=== PATIENT | female | born 1950 | race Caucasian/White ===

== ENCOUNTER → 2016-10-10 | Outpatient (CLI) | payer OTHER ==
[~2016-10-10] MED LIST: ATOR1TAB21 PO; EC-N500T OR; IBUP200C PO; PERC5TAB6 PO; VITAMIN B COMPLEX WI OR
== END ==
LOC: M PAIN 11:20
PROVIDERS: ATTEND Nurse Practitioner Family
DX: Z53.29 Procedure and treatment not carried out because of patient's decision for other reasons (principal)

== ENCOUNTER → 2017-01-16 | Outpatient (CLI) | payer OTHER ==
[2017-01-16 08:53] LABS: MEAN CORPUSCULAR HEMOGLOBIN 27.1 pg (27.0-33.0); MEAN CORPUSCULAR HGB CONC 33.2 g/dl (32.0-36.5); MEAN CORPUSCULAR VOLUME 81.6 fl (80.0-96.0); WHITE BLOOD COUNT 12.8 K/mm3 (4.0-10.0)
[2017-01-16 09:22] LABS: ALBUMIN 3.4 GM/DL (3.2-5.2); ALBUMIN/GLOBULIN RATIO 0.92 (1.00-1.93); ALKALINE PHOSPHATASE 134 U/L (45-117); ALT/SGPT 15 U/L (12-78); ANION GAP 7 MEQ/L (8-16); AST/SGOT 11 U/L (15-37); BILIRUBIN,TOTAL 0.3 MG/DL (0.2-1.0); BLOOD UREA NITROGEN 12 MG/DL (7-18); CALCIUM LEVEL 8.7 MG/DL (8.8-10.2); CARBON DIOXIDE LEVEL 26 MEQ/L (21-32); CHLORIDE LEVEL 109 MEQ/L (98-107); CHOLESTEROL LEVEL 137 MG/DL (<200); CREATININE FOR GFR 0.71 MG/DL (0.55-1.02); GLOMERULAR FILTRATION RATE > 60.0 (>45); GLUCOSE, FASTING 99 MG/DL (80-110); POTASSIUM SERUM 4.2 MEQ/L (3.5-5.1); SODIUM LEVEL 142 MEQ/L (136-145); TOTAL PROTEIN 7.1 GM/DL (6.4-8.2); TRIGLYCERIDES LEVEL 74 MG/DL (<150)
== END ==
LOC: M LAB 07:56
PROVIDERS: ATTEND Physician Assistant
DX: F17.200 Nicotine dependence, unspecified, uncomplicated (principal); Z79.899 Other long term (current) drug therapy; M48.06 Spinal stenosis, lumbar region; C34.92 Malignant neoplasm of unspecified part of left bronchus or lung; E55.9 Vitamin D deficiency, unspecified; R60.9 Edema, unspecified; E78.2 Mixed hyperlipidemia; K21.9 Gastro-esophageal reflux disease without esophagitis

== ENCOUNTER → 2017-01-26 | Outpatient (CLI) | payer MEDICARE, OTHER ==
--- NOTE | 2017-01-26 16:59 | REP ---
Chest x-ray: Two views: History: Bronchitis. Cough and shortness of breath. Findings: The lungs are symmetrically aerated and clear. Pleural angles are sharp. Heart size is normal. The aorta is calcific. There are degenerative changes in the thoracic spine. There are old healed rib fractures on the left. Some vascular calcification is noted in the carotid artery distribution in the neck soft tissues. Impression: No active disease. Vascular calcification. Signed by Lowell Mckeon MD 01/26/2017 06:02 P
== END ==
LOC: M ADAMS 14:35
PROVIDERS: ATTEND Physician Assistant
DX: J40 Bronchitis, not specified as acute or chronic (principal); I70.0 Atherosclerosis of aorta

== ENCOUNTER 2017-04-02 08:19 | Emergency (ER) | payer OTHER ==
[~2017-04-02] VITALS: Ht 154.9 cm; Wt 86.4 kg
[~2017-04-02 08:19] MED LIST changes: -IBUP200C PO; +IBUP200C10 PO; +PERC5TAB12 PO; -PERC5TAB6 PO
[2017-04-02] MEDS ORDERED: FURO20TA2 PO (08:44)
[2017-04-02] MEDS ORDERED: ATOR1TAB21 PO (08:44)
[2017-04-02] MEDS ORDERED: OMEP40CA2 PO (08:44)
[2017-04-02] MEDS ORDERED: IBUP-1022 PO (08:44)
[2017-04-02] MEDS ORDERED: GABA-283 PO (08:44)
[2017-04-02] MEDS ORDERED: GABA600T PO (08:44)
[2017-04-02] MEDS ORDERED: methylPREDNISolone INJ 125 MG/2 ML VIAL (J2930) IV ONE (09:30)
[2017-04-02] MEDS ORDERED: NS 1,000 ML IV ONE ×2 (09:30→13:30)
[2017-04-02] MEDS ORDERED: IPRATROPIUM 0.5MG/ALBUTEROL 2.5MG INH SOL UD 3ML (DUONEB)(J7620) NEB ONE (09:30)
[2017-04-02] MEDS ORDERED: ALBUTEROL SULFATE 2.5 MG/0.5 ML INH NEB SOLN INH ONE (09:30)
[2017-04-02] MEDS ORDERED: ONDANSETRON 4MG/2ML VIAL (J2405) IV ONE (09:30)
[2017-04-02] MEDS: MORPHINE 2 MG/ML 1ML SYRINGE IV PRN ×2 (09:40→14:35)
--- NOTE | 2017-04-02 09:55 | REP ---
Chest one-view HISTORY: Cough Comparison: 05/28/2016 The lungs are clear. The heart is normal in size. The pulmonary vasculature is normal in appearance. Impression: No acute disease. Signed by Tank Abbott MD 04/02/2017 09:46 A
[2017-04-02 09:57] LABS: BASO # 0.1 K/mm3 (0.0-0.2); BASO % 0.8 % (0.0-1.0); EOS # 0.2 K/mm3 (0.0-0.50); EOS % 1.5 % (0.0-3.0); LARGE UNSTAINED CELL # 0.3 K/mm3 (0.0-0.4); LYMPH # 3.6 K/mm3 (1.5-4.5); MEAN CORPUSCULAR HEMOGLOBIN 26.7 pg (27.0-33.0); MEAN CORPUSCULAR HGB CONC 33.8 g/dl (32.0-36.5); MONO # 0.5 K/mm3 (0.0-0.8); MONO % 3.6 % (0.0-5.0); NEUTROPHILS # 8.5 K/mm3 (1.8-7.7); PLATELET COUNT, AUTOMATED 304 k/mm3 (150-450); RED CELL DISTRIBUTION WIDTH 15.5 % (11.5-14.5); WHITE BLOOD COUNT 12.8 K/mm3 (4.0-10.0)
[2017-04-02 10:01] LABS: INR 0.98
[2017-04-02 10:24] LABS: ALBUMIN 3.2 GM/DL (3.2-5.2); ALBUMIN/GLOBULIN RATIO 0.84 (1.00-1.93); ALKALINE PHOSPHATASE 135 U/L (45-117); ALT/SGPT 13 U/L (12-78); ANION GAP 7 MEQ/L (8-16); AST/SGOT 11 U/L (15-37); BILIRUBIN,DIRECT < 0.1 MG/DL (0.0-0.2); BILIRUBIN,TOTAL 0.3 MG/DL (0.2-1.0); BLOOD UREA NITROGEN 18 MG/DL (7-18); CALCIUM LEVEL 8.5 MG/DL (8.8-10.2); CARBON DIOXIDE LEVEL 23 MEQ/L (21-32); CHLORIDE LEVEL 114 MEQ/L (98-107); CREATININE FOR GFR 0.56 MG/DL (0.55-1.02); GLOMERULAR FILTRATION RATE > 60.0 (>45); GLUCOSE, FASTING 103 MG/DL (80-110); POTASSIUM SERUM 3.2 MEQ/L (3.5-5.1); SODIUM LEVEL 144 MEQ/L (136-145); THYROXINE (T4) 10.6 UG/DL (4.5-12.0)
[2017-04-02] MEDS ORDERED: POTASSIUM CHLORIDE 10 MEQ SR TABLET PO ONE (10:45)
--- NOTE | 2017-04-02 11:23 | ECGEPIP ---
Stationary ECG Study [facility] - ED Test Date: 2017-04-02 Pat Name: THIERNO ALEJANDRE Department: Room: - Gender: F Consulting Sales Manager: JOSH : 1950 Requested By: Minor Quick Order Number: [id number] Reading MD: Minor Quick Measurements Intervals Man Rate: 88 P: 58 AL: 148 QRS: 62 QRSD: 84 T: 89 QT: 332 QTc: 402 Interpretive Statements SINUS RHYTHM NONSPECIFIC T-WAVE ABNORMALITY DELAYED R WAVE PROGRESSION CW 03/23/15 RATE INCREASED Electronically Signed On 04-02-2017 11:23:00 EDT by Minor Quick
--- NOTE | 2017-04-02 11:49 | REP ---
CT ABDOMEN AND PELVIS WITHOUT CONTRAST: HISTORY: Left flank pain. COMPARISON: 03/02/2009 The patient is status post cholecystectomy. Several ill-defined hypodensities are present in the liver. These may represent cysts or possibly metastases. A 2 cm mass is present in the left adrenal gland. This most likely represents and adenoma. The pancreas, spleen, right adrenal gland and kidneys are normal in appearance. There is no nephrolithiasis or hydroureter. Diverticula are present in the descending and sigmoid colon. The patient is status post hysterectomy. The urinary bladder is normal in appearance. There is no mass, adenopathy or free fluid. A 4 cm right lateral ventral abdominal hernia containing fat is present. Degenerative change is present in the thoracic and lumbar spine. The visualized lungs are clear. A small pericardial effusion is present. IMPRESSION: 1. The patient is status post cholecystectomy. 2. There are several ill-defined hypodensities in the liver that may represent cysts or possibly metastases. Contrast-enhanced or ultrasound may be helpful for further evaluation. 3. 2 cm left adrenal mass most likely representing an adenoma. 4. Descending and sigmoid colon diverticulosis. 5. The patient is status post hysterectomy. 6. 4 cm right lateral ventral abdominal hernia containing fat. 7. Small pericardial effusion. Signed by Tank Abbott MD 04/02/2017 11:51 A
[2017-04-02] MEDS ORDERED: MORPHINE 2 MG/ML 1ML SYRINGE IV PRN (13:00)
--- NOTE | 2017-04-02 15:01 | REP ---
MRI THORACIC SPINE WITHOUT CONTRAST: HISTORY: Foot numbness. A disc bulge is present at the T5-6 level. There is minimal effacement of the thecal sac without spinal cord compression. The T5 neural foramina are patent. A disc bulge is present at the T6-7 level. There is mild effacement of the thecal sac without spinal cord compression. The T6 neural foramina are patent. A disc bulge is present at the T7-8 level. There is mild effacement of the thecal sac without spinal cord compression. The T7 neural foramina are patent. A disc bulge is present at the T9-10 level. There is minimal effacement of the thecal sac without spinal cord compression. The T9 neural foramina are patent. A disc bulge is present at the T10-11 level. There is mild effacement of the thecal sac without spinal cord compression. There is hypertrophy of the posterior articulating facets. The T10 neural foramina are patent. A disc bulge and mild sized right paracentral disc extrusion are present at the T12-L1 level. There is hypertrophy of the ligamenta flava and posterior articulating facets. These findings produce moderate central canal stenosis and spinal cord compression. There is no other disc bulge or herniation. The remaining neural foramina are patent. The spinal cord is normal in signal intensity. A hemangioma is present in the T6 vertebral body. Increased signal intensity on T2-weighted images is present in the endplates of several mid and lower thoracic vertebral bodies. This represents degenerative change. There are old compression fractures of the T8 through T11 vertebral bodies with minimal height loss. IMPRESSION: 1. Disc bulges at the T5-6 through T7-8, T9-10 and T10-11 levels without spinal cord compression. 2. Moderate central canal stenosis at the T12-L1 level secondary to disc bulge, disc extrusion, ligamentous and facet hypertrophy. There is moderate spinal cord compression. Signed by Tank Abbott MD 04/02/2017 03:06 P
--- NOTE | 2017-04-02 15:25 | REP ---
MRI LUMBAR SPINE WITHOUT CONTRAST: HISTORY: Foot numbness. COMPARISON: 03/05/2014 Decreased signal intensity on T2-weighted images is present in the visualized thoracic and lumbar intervertebral discs. The discs are decreased in height. These findings are consistent with disc degeneration. A disc bulge and mild sized right paracentral disc extrusion are present at the T12-L1 level. This produces moderate spinal cord compression. The T12 neural foramina are patent on sagittal images. A diffuse disc bulge and small left paracentral disc protrusion are present at the L1-2 level. There is hypertrophy of the ligamenta flava and posterior articulating facets. There are 3 mm of retrolisthesis of L1 on L2. These findings produce moderate central canal stenosis. The L1 nerves exit the neural foramina without compression. A diffuse disc bulge is present at the L2-3 level. There is hypertrophy of the ligamenta flava and posterior articulating facets. These findings produce severe central canal stenosis. There is compression of the right L2 nerve in the neural foramen. The left L2 nerve exits the neural foramen without compression. A diffuse disc bulge is present at the L3-4 level. There is hypertrophy of the ligamenta flava and posterior articulating facets. These findings produce moderate central canal stenosis. A moderate size right intraforaminal disc protrusion is present. There is compression of the right L3 nerve in the neural foramen. The left L3 nerve exits the neural foramen without compression. A diffuse disc bulge and small right paracentral disc protrusion are present at the L4-5 level. There is hypertrophy of the ligamenta flava and posterior articulating facets. There is 7 mm of grade 1 spondylolisthesis of L4 on L5. These findings produce moderate central canal stenosis. There is compression of the L4 nerves in the neural foramina. A diffuse disc bulge and mild sized central disc extrusion are present at the L5-S1 level. There is inferior migration of disc material. The disc extrusion is decreased in size. There is minimal compression of the thecal sac. There is hypertrophy of the posterior articulating facets. There is compression of the L5 nerves in the neural foramina. The conus medullaris terminates at the level of the T12-L1 intervertebral disc. A hemangioma is present in the L4 vertebral body. Normal signal intensity is present in the remaining lumbar vertebral bodies. IMPRESSION: 1. Moderate central canal stenosis at the L1-2 level secondary to disc bulge, disc protrusion, ligamentous and facet hypertrophy. There has been progression of the canal stenosis. 2. Severe central canal stenosis at the L2-3 level secondary to disc bulge, ligamentous and facet hypertrophy. 3. Moderate central canal stenosis at the L3-4 level secondary to disc bulge, ligamentous and facet hypertrophy. A moderate sized right intraforaminal disc protrusion is present. There is compression of the right L3 nerve in the neural foramen. There has been progression of the canal stenosis. 4. Moderate central canal stenosis at the L4-5 level secondary to disc bulge, disc protrusion, ligamentous and facet hypertrophy and grade 1 spondylolisthesis. 5. Diffuse disc bulge and mild sized central disc extrusion at the L5-S1 level with minimal thecal sac compression. The disc extrusion is decreased in size. There is no other significant change. Signed by Tank Abbott MD 04/02/2017 03:31 P
[2017-04-02] MEDS ORDERED: AVEL1TAB3 PO (15:34)
[2017-04-02] MEDS ORDERED: PRED20TA PO (15:34)
[2017-04-02 15:37] VITALS: BP 180/76
== END 2017-04-02 15:50 | disposition home or self-care (01) ==
LOC: M ED 08:19
DX: J20.9 Acute bronchitis, unspecified (principal); J44.1 Chronic obstructive pulmonary disease with (acute) exacerbation; M51.37 Other intervertebral disc degeneration, lumbosacral region; M51.34 Other intervertebral disc degeneration, thoracic region; M48.00 Spinal stenosis, site unspecified; C34.92 Malignant neoplasm of unspecified part of left bronchus or lung; F17.210 Nicotine dependence, cigarettes, uncomplicated; Z98.61 Coronary angioplasty status; Z79.899 Other long term (current) drug therapy; E78.4 Other hyperlipidemia; R06.02 Shortness of breath
CPT/HCPCS: 51701; 71010; 72146; 72148; 74176; 80048; 80076; 81001; 82550; 82553; 83605; 83880; 84436; 84443; 84484; 85025; 85610; 87040; 87088; 87186; 93005; 93041; 94640; 94760; 96361; 96374; 96375; 99285; J2405; J2930

== ENCOUNTER → 2017-04-06 | Outpatient (CLI) | payer OTHER ==
[~2017-04-06] MED LIST changes: +AVEL1TAB3 PO; +FURO20TA2 PO; +GABA-283 PO; +GABA600T PO; +IBUP-1022 PO; +OMEP40CA2 PO; +PRED20TA PO
--- NOTE | 2017-04-06 09:05 | REP ---
Abdominal right upper quadrant ultrasound in a patient with lung carcinoma and question of hepatic metastases. Comparison is a CT study of the abdomen and pelvis dated 04/02 2017. The the patient has a cholecystectomy. There is no intrahepatic or extrahepatic biliary duct dilatation, the common duct measures 7.4 mm in diameter. This is in the normal range for a post cholecystectomy patient. There is a 3.8 cm mass in the right lobe of the liver corresponds to a hypodensity on the comparison CT. There is a 3.9 cm hypodense lesion in the left lobe of the liver. This corresponds to a hypodensity on the comparison CT. The hepatic parenchyma is otherwise homogeneous and unremarkable. The visualized portion of the pancreatic head is unremarkable. The body and tail are obscured by bowel gas. There is no right renal hydronephrosis, calculus, mass or cyst. Right kidney is normal size measuring 10.5 cm craniocaudad length. There is no I had identified ascites. Impression: There is a mass in the right lobe of the liver mass in the left lobe of the liver corresponding to hypo densities on the comparison CT. Consider follow-up MRI and PET scan. Biopsy might also be considered. Signed by Joseph Lew MD 04/06/2017 08:56 A
== END ==
LOC: M RAD 07:48
PROVIDERS: ATTEND Family Medicine
DX: K76.89 Other specified diseases of liver (principal)

== ENCOUNTER → 2017-04-20 | Outpatient (REF) | payer OTHER ==
[2017-04-20 19:53] LABS: MEAN CORPUSCULAR HEMOGLOBIN 27.8 pg (27.0-33.0); MEAN CORPUSCULAR VOLUME 81.6 fl (80.0-96.0); WHITE BLOOD COUNT 11.2 K/mm3 (4.0-10.0)
[2017-04-20 19:54] LABS: INR 0.96
== END ==
LOC: M SFHCADAM 15:40
PROVIDERS: ATTEND Family Medicine
DX: K76.89 Other specified diseases of liver (principal); Z01.812 Encounter for preprocedural laboratory examination

== ENCOUNTER → 2017-04-26 | Outpatient (CLI) | payer OTHER ==
--- NOTE | 2017-04-27 12:40 | REP ---
ULTRASOUND GUIDED LIVER BIOPSY: The procedure was performed by WOODROW Laurent under the direct supervision of Dr. Mcclain. The procedure along with its risks, benefits, and complications were discussed with the patient prior to the procedure. Informed consent was obtained both verbally and written. Following universal protocol, patient and site verification were performed with a procedural "time out" prior to starting the procedure. The patient was positioned in the supine position on the ultrasound table and the lesion was localized with real-time ultrasonography. The skin was marked, prepped and draped in the usual sterile fashion. 1% Xylocaine was used for local infiltrative anesthesia. A 20-gauge Temno biopsy device was advanced to the target. A total of four biopsy specimens were obtained and placed in formalin. Laboratory results are pending. Ultrasound imaging was used to document needle placement for each pass. Following the procedure, the wound was cleansed and compressed. A small hematoma was noted on the ultrasound imaging post biopsy. A bandage was placed at the site and the patient returned to the interventional department for 2-hours post biopsy observation. After the 2 hours of observation, the patient was given post biopsy instructions. The patient tolerated the procedure well and was discharged from the department. Reviewed by WOODROW Gresham 04/27/2017 01:31 PEdited and Signed by Joseph Mcclain MD 04/27/2017 01:33 P
== END | disposition home or self-care (01) ==
LOC: M RADPRO 09:09
PROVIDERS: ATTEND Physician Assistant
DX: C22.7 Other specified carcinomas of liver (principal); Z79.899 Other long term (current) drug therapy; Z88.8 Allergy status to other drugs, medicaments and biological substances

== ENCOUNTER → 2017-05-01 | Outpatient (CLI) | payer OTHER ==
--- NOTE | 2017-05-01 14:42 | PFTRPT ---
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 The forced vital capacity is reduced. The FEV1 is in proportion. The obstructive index is, therefore, normal. FLOW VOLUME LOOP: The expiratory limb of the flow volume loop is normal. No significant bronchodilator response is identified. LUNG VOLUMES: The total lung capacity is normal. The residual volume suggests air trapping. DIFFUSION CAPACITY: The diffusion capacity is reduced, but does correct for alveolar volume. HEMOGLOBIN: The hemoglobin is acceptable at 14.2. AIRWAY MECHANICS: Airways resistance is minimally elevated with a concomitant decrease in airway conductance. IMPRESSION: Underlying air trapping. No bronchodilator response. Please correlate clinically. MTDD
== END ==
LOC: M CARPUL 13:22
PROVIDERS: ATTEND Internal Medicine Pulmonary Disease
DX: R91.8 Other nonspecific abnormal finding of lung field (principal); F17.218 Nicotine dependence, cigarettes, with other nicotine-induced disorders

== ENCOUNTER → 2017-05-16 | Outpatient (CLI) | payer OTHER ==
--- NOTE | 2017-05-17 09:27 | REP ---
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 Comparison PET/CT study March 05, 2015. Comparison CT abdomen and pelvis April 02, 2017. Comparison chest CT June 08, 2016. TECHNIQUE: 59 minutes following the intravenous injection of a 10.5 mCi dose of F-18 FDG, three-dimensional PET scintigraphy is acquired from the skull base to the proximal thighs. Triplanar noncontrast CT scanning is acquired through the same anatomic range for attenuation correction, and image registration with scan parameters optimized to minimize radiation exposure to the patient. PET scintigraphy and CT datasets were fused and displayed on a workstation with multiplanar and projection display capability. PET/CT Findings: There are numerous hypermetabolic metastatic foci scattered about the right and left lobe of the liver. The largest of these is in the left hepatic lobe. This lesion has maximum standard uptake value of 12.8. It measures 5.0 cm in greatest diameter. There is a 4.5 cm central right hepatic lobe lesion with maximum standard uptake value of 11.2. There are numerous smaller lesions and there is evidence of progression since the CT study dated April 02, 2017 with increase in size and number of hepatic metastatic lesions. There are multiple hypermetabolic junior foci in the right hilum and in the anterior and middle mediastinum. These are new lymph nodes compared with the prior CT study June 08, 2016. Maximum standard uptake value in the precarinal adenopathy is 10.4. Anterior mediastinal adenopathy activity is up to 10.1. Right hilar hypermetabolic lymph node has maximum standard uptake value of 8.1. There is a nodule in the right upper lobe which is hypermetabolic with maximum standard uptake value of 5.3. This measures 1.6 cm in diameter and is seen to be cavitary. There is a small hypermetabolic nodule in the right lower lobe adjacent to the hilus with maximum standard uptake value 5.4. No abnormal head and neck uptake is seen. No other abnormal hypermetabolic uptake is seen in the chest. No hypermetabolic uptake is observed in the left adrenal. This is consistent with a benign adenoma. There are hypermetabolic lesions in the proximal femurs bilaterally. The largest of these is in the left hip. Maximum standard uptake value in this lesion is 9.0. No other skeletal metastatic focus is seen. No bony destructive lesion is seen on accompanying CT. Impression: Metastatic pattern of multiple hypermetabolic liver masses, metastatic hypermetabolic mediastinal and right hilar adenopathy, at least two pulmonary nodules which appear cavitary, and two skeletal metastatic lesions, one in each hip. There is evidence of progression since the CT study April 02, 2017. Signed by Lowell Mckeon MD 05/17/2017 01:40 P
== END ==
LOC: M PLARAD 11:23
PROVIDERS: ATTEND Internal Medicine Medical Oncology
DX: C78.7 Secondary malignant neoplasm of liver and intrahepatic bile duct (principal)
CPT/HCPCS: 78815; A9552